=== PATIENT | female | born 1995 | race Caucasian/White ===

== ENCOUNTER → 2019-10-11 14:34 | Outpatient (CLI) | payer OTHER, SELFPAY ==
--- NOTE | ~2019-10-11 | US_ITS ---
EXAMINATION: US OB transvaginal EXAM DATE: 10/11/2019 15:01 INDICATION: Possible molar . Beta hCG positive, LMP on 07/24/2019 with bleeding since.. TECHNIQUE: Pelvic obstetrical transabdominal sonogram was performed by a technologist. There are mu ltiple grayscale and Doppler images available for interpretation. Correlation is made to prior ultras ound 06/29/2019. FINDINGS: The uterus is enlarged at 15.1 x 9.0 x 11.6 with heterogeneous predominantly solid mass wit hin the endometrium measuring 10.4 x 7.8 x 9.1 cm. Mass is relatively avascular. No viable intrauteri ne or extrauterine identified. Appearance is consistent with molar . Recommend his tologic correlation. Left ovary is morphologically normal. IMPRESSION: Endometrial mass; histologic correlation recommended. Reviewed, dictated and finalized at location A.
== END ==
PROVIDERS: Visit Provider Obstetrics & Gynecology Gynecology
DX: O02.0 Blighted ovum and nonhydatidiform mole (principal)
CPT/HCPCS: 76817

== ENCOUNTER 2019-10-15 14:41 | Outpatient (CLI) | payer OTHER, SELFPAY ==
--- NOTE | ~2019-10-15 | XR_ITS ---
EXAMINATION: XR chest 2V 10/15/2019 15:13 INDICATION: Molar . Preoperative evaluation. PROCEDURE: 2 view chest COMPARISON: No prior studies for comparison. FINDINGS: The lungs are clear. The cardiomediastinal silhouette is within normal limits. There are no pleural effusions. There is no pneumothorax suspected. IMPRESSION: 1: NO ACUTE CARDIOPULMONARY DISEASE. Reviewed, dictated and finalized at location A.
[2019-10-15 15:08] LABS: Hematocrit 40.1 % (37.0-47.0); Hemoglobin 13.8 g/dL (12.0-15.0); Mean Corpuscular HGB Conc 34.4 g/dl (32-36); Mean Corpuscular Hemoglobin 31.9 pg (26-34); Mean Corpuscular Volume 92.6 fl (80-100); Mean Platelet Volume 9.1 fl (7.4-10.4); Platelet Count Result 260 k/mm3 (150-375); Red Blood Count 4.33 M/mm3 (4.2-5.4); Red Cell Distribution Width 11.4 % (11.5-14.5)
[2019-10-15 15:20] LABS: Alanine Aminotransferase 16 U/L (4-35); Albumin Level 4.3 g/dL (3.5-5.1); Alkaline Phosphatase 77 U/L (38-126); Aspartate Amino Transferase 28 U/L (14-36); Bilirubin,Total 0.9 mg/dL (0.2-1.3); Blood Urea Nitrogen 9 mg/dL (7-17); Calcium 9.6 mg/dL (8.4-10.2); Carbon Dioxide 23 mmol/L (22-30); Chloride 102 mmol/L (98-107); Estimated Glomerular Filt Rate > 60; Glucose 89 mg/dL (65-105); Potassium 3.7 mmol/L (3.4-5.0); Sodium 135 mmol/L (137-145)
== END 2019-10-15 14:42 | disposition home or self-care (01) ==
LOC: ANHLAB 14:45
PROVIDERS: Visit Provider Obstetrics & Gynecology Gynecology
DX: Z01.818 Encounter for other preprocedural examination (principal); O02.0 Blighted ovum and nonhydatidiform mole
CPT/HCPCS: 36415; 71046; 80053; 85027; 86850; 86900; 86901

== ENCOUNTER 2019-10-16 01:37 | Day surgery (SDC) | payer OTHER, SELFPAY ==
[2019-10-15 15:44] VITALS: BMI 26.2
[2019-10-16 10:10] VITALS: BP 123/55; PULSE 81; RESP 16; TEMP 36.1; O2SAT 100
[2019-10-16] MEDS: LACTATED RINGERS 1,000 ML 30 ML IV CONT (10:30)
--- NOTE | 2019-10-16 10:36 | WPDANESEPPF ---
Anes - Initial Pre Proc Eval Procedure: Operation Date: 10/16/19 12:00 Proposed Procedures p Suction Dilatation and Curettage - Trice Slater MD Date/Time: 10/16/19 10:36 Surgeon: Trice Slater MD Pre Op Diagnosis: molar Patient Data Age: 24 Gender: F Height: 5 ft 3 in Weight: 67.13 kg Last Vital Signs Temp 36.1 C L 10/16/19 10:10 Pulse 81 10/16/19 10:10 Resp 16 10/16/19 10:10 BP 123/55 L 10/16/19 10:10 Pulse Ox 100 10/16/19 10:10 Allergies Allergy/AdvReac Type Severity Reaction Status Date / Time No Known Allergies Allergy Unknown Verified 10/15/19 15:43 Home Medications Medication Instructions Recorded Confirmed Type No Home Medications 10/15/19 10/15/19 History Patient hx anesthesia problems: none Family hx anesthesia problems: none PMFSH Past Medical History Medical History Healthy adult Surgical History Surgical History S/P D&C (status post dilation and curettage) Social History Social History Gender identity (if verbalized by the patient): Female Anes - Eval Final PreProcedure Day of Procedure 10/16/19 10:36 Patient weight: overweight Heart: regular rate and rhythm Lungs: clear to auscultation Airway: Mallampati scale class 1 Neurological: alert and oriented Last oral intake: >/= 8 hours ASA classification: II Emergent: no Anesthetic plan: proceed Anesthesia type and monitoring: general GIVS and standard monitoring Informed Consent: The patient's anesthetic plan and its attendant risks and benefits were discussed with the patient/family/POA. Questions were solicited and answers provided to the satisfaction of the patient/family/POA.
--- NOTE | 2019-10-16 11:33 | P.HP_ITS ---
History of Present Illness History of Present Illness Consent: Risks, benefits, and alternatives have been discussed and questions answered. Patient agrees to proceed with procedure. Chief complaint: molar Narrative: Clau Marx is a 24 year old female A2 here for D&C for molar . Patient with D&C 07/26/19 with pathology showing 69, XXX and no evidence of molar tissue. Patient did not follow up for 1 week post op but did return 08/30/19 due to light bleeding. BHCG was ordered at that visit but patient did not have it done. Patient then called on 10/08/19 stating she was still having light bleeding and continued to have +urine test. HCG's ordered and patient completed with HCG' at 5055 and 5246 48 hours apart. U/s done and showed a 15 cm solid molar . CXR and LFT's normal. Reviewed need for repeat D&C. Reviewed risks of procedure with patient and sig. other including bleeding requiring transfusion and potentially hysterectomy. [facility] Past Medical History Medical History Healthy adult Surgical History Surgical History S/P D&C (status post dilation and curettage) Social History Social History Gender identity (if verbalized by the patient): Female Meds Home Medications and Allergies Home Medications Medication Instructions Recorded Confirmed Type No Home Medications 10/15/19 10/15/19 History Allergies Allergy/AdvReac Type Severity Reaction Status Date / Time No Known Allergies Allergy Unknown Verified 10/15/19 15:43 Vital Signs Vital Signs - 24 hr 10/16/19 10:10 Temperature 97.0 F L Pulse Rate 81 Respiratory Rate 16 Blood Pressure 123/55 L Pulse Oximetry 100 Exam Const: General: no acute distress Cardio: Rate: regular rate Rhythm: regular rhythm GI: Other: fundus u-4 Assessment and Plan Assessment and plan (1) Molar : Code(s): O02.0 - Blighted ovum and nonhydatidiform mole Status: Acute Assessment and Plan: Plan suction D&C. Plan u/s guidance. Will start pitocin drip and give IM methergine prior to dilation. Cytotec and large devine available in room. Plan Methotrexate post op. Will follow HCG q week until negative then monthly for 1 year. Instructed patient and sig. other to use effective control for 1 year. Patient voiced understanding and agrees to proceed.
[2019-10-16] MEDS: METHYLERGONOVINE MALEATE 0.2 MG/ML VIAL IM (12:03)
[2019-10-16] MEDS: OXYTOCIN 30 UNITS/NS 500 ML 30 UNITS/500 ML BAG IV CONT (12:22)
--- NOTE | 2019-10-16 12:32 | PM.OP ---
Procedure Note - Brief Procedure Note - Brief Date of procedure: 10/16/19 Pre-op diagnosis: molar Post-op diagnosis: same Procedure performed: suction D&C ultrasound guided Anesthesia: MAC and local Surgeon: Trice Slater MD Estimated blood loss (mL): 300 (total POC and blood) Drains: No Packing: No Pathology: yes (POC) Complications: No immediate complications Condition: stable Disposition: PACU Findings: Uterus initially 14 cm and ending 9.5 cm large amount of tissue obtained u/s before, during, and post-procedure post showed thickened endometrial lining but no visible tissue
[2019-10-16 12:38] VITALS: BP 114/79; PULSE 105; RESP 16; TEMP 36.2; O2SAT 98
[2019-10-16 13:00] VITALS: BP 113/59; PULSE 76
[2019-10-16 13:30] VITALS: BP 115/67; PULSE 68
[2019-10-16] MEDS: METHOTREXATE SODIUM/PF 50 MG/2 ML VIAL IM (13:30)
--- NOTE | 2019-10-16 14:04 | OP_ITS ---
DATE OF PROCEDURE: 10/16/2019 PREOPERATIVE DIAGNOSIS: Molar . POSTOPERATIVE DIAGNOSIS: Molar . PROCEDURE: Suction D and C under ultrasound guidance. ANESTHESIA: MAC and local. FINDINGS: The uterus initially sounds to 14 cm. At the end of the case, it sounds to 9.5 cm. There was a large amount of tissue obtained. Ultrasound before, during, and post procedure was performed. The postprocedure showed thickened endometrium lining with no additional visible tissue noted. ESTIMATED BLOOD LOSS: 300 cc which included a large amount of products of conception. Minimal bleeding. PATHOLOGY: Endometrial contents, products of conception. DESCRIPTION OF PROCEDURE: The patient was taken to the operating room, placed under anesthesia, prepped and draped in the usual sterile fashion in the dorsal lithotomy position. The patient had a Pitocin drip started prior to beginning the procedure and was given Methergine 0.2 mg IM prior to beginning the procedure. Ultrasound was utilized and the uterus easily visible with large amount of tissue noted within the endometrium. The bivalve speculum was placed in the vagina. The cervix was grasped anteriorly with a tenaculum and injected with 1% lidocaine. The uterus was not sounded initially. The cervix was serially dilated with Hegars to a 12. The uterus was then sounded to 14 cm. The 12 mm suction curette was used to evacuate the uterus until no further products were noted in the tubing. As the suction curette was pulled out, the tissue was visible at the os. This was pulled out using the polyp forceps until no further products were noted at the cervix. The suction curette was again placed. Additional products were noted. This continued until no further products were noted in the tubing. The large sharp curette was used to gently curette the endometrium. Products continued to be obtained. The 10 mm suction curette was then placed and an additional large amount of tissue was obtained. The suction was removed. Additional tissue was noted at the cervix, this was removed with polyp forceps. The sharp curette was then used and minimal to no material was obtained. Ultrasound throughout revealed decreasing amount of tissue. At this point, ultrasound was again performed and no additional tissue is noted within the cavity and under sharp curette, the cavity appears smooth with a good uterine cry noted in all areas. The uterus was again sounded and noted to be 9.5 cm. All instruments were removed. The patient was awakened from anesthesia, taken to recovery in stable condition. D I MT: Milo
[2019-10-16 14:15] VITALS: BP 108/64; PULSE 72
== END 2019-10-16 14:35 | disposition home or self-care (01) ==
PROVIDERS: Visit Provider Obstetrics & Gynecology Gynecology
PROC: (CPT 59820; principal; 2019-10-16 12:00)
DX: O02.0 Blighted ovum and nonhydatidiform mole (principal)
CPT/HCPCS: 59820; 88305; A9270; J1885; J2210; J2250; J2590; J2704; J3010; J7120; J9260

== ENCOUNTER 2020-05-26 16:46 | Emergency (ER) | payer OTHER, SELFPAY ==
[2020-05-26 16:58] VITALS: BP 117/61; PULSE 115; RESP 19; TEMP 37.9; O2SAT 100
[2020-05-26 17:38] LABS: Add Urine Microscopic? YES; Appearance Urine Clear (Clear); Bacteria Urine Trace /hpf; Bilirubin Urine Negative (Negative); Blood Urine 1+ (Negative); Color Urine Amber (Yellow); Glucose Urine UA Negative (Negative); Ketones Urine Negative (Negative); Leukocyte Esterase Ur 2+ LEU/UL (Negative); Mucus Urine Rare /lpf; Nitrate Urine Positive (Negative); Protein Urine 2+ mg/dL (Negative); RBC Urine 21-50 /hpf (0-2); Specific Grav Ur 1.012 (1.001-1.035); Squamous Epithelial Cell Urine Occasional /hpf (Few); WBC Urine >75 /hpf
--- NOTE | 2020-05-26 18:36 | ED.GENADULT ---
HPI - General Adult General Chief complaint: Urogenital-Female Stated complaint: UTI symptoms Time Seen by Provider: 05/26/20 17:48 Source: patient and RN notes reviewed Mode of arrival: ambulatory Limitations: no limitations History of Present Illness HPI narrative: Patient is a 25-year-old female who presents with urinary symptoms that have been present now for the last 5 days started an old prescription for her symptoms took 3 doses of Bactrim DS. Patient notes she has had some burning and discomfort and also having some mid back pain with the denies any vomiting diarrhea URI symptoms. Patient notes today she spiked a fever so came in for concern patient has not been seen for this complaint Related Data Allergies Allergy/AdvReac Type Severity Reaction Status Date / Time No Known Allergies Allergy Unknown Verified 05/26/20 17:03 Review of Systems Review of Systems: All systems reviewed & are unremarkable except as noted in HPI and below PMFSH Past Medical History Medical History (Updated 05/26/20 @ 19:54 by Rocky Cummings PA-C) Healthy adult Surgical History Surgical History S/P D&C (status post dilation and curettage) Social History Social History Gender identity (if verbalized by the patient): Female Exam Narrative: Exam Narrative: GENERAL: Ill-appearing, well-nourished, and in no acute distress. HEAD: Normocephalic, atraumatic. EYES: PERRLA and EOMI. ENT: Nares clear, no rhinorrhea or epistaxis. Mucous membranes moist. CHEST: Clear to auscultation. No respiratory distress. No wheezes rales or rhonchi HEART: Regular rate and rhythm. No murmur heard. Normal peripheral pulses. ABDOMEN: Soft, nontender, nondistended EXTREMITIES: Normal range of motion. No edema. SKIN: Warm, dry, no rash. NEURO: No focal deficits. Alert and oriented x3. PSYCH: Normal mood and affect. Course Course Emergency Course: Patient in the room at this time feeling better with interventions will be discharged home with gynecological follow-up given reasons to return given fluids antidiuretics and reasons to return agreeing to do so if symptoms worsen Vital Signs Vital signs: Vital Signs Temperature 100.3 F H 05/26/20 16:58 Pulse Rate 115 H 05/26/20 16:58 Respiratory Rate 19 05/26/20 16:58 Blood Pressure 117/61 05/26/20 16:58 Pulse Oximetry 100 05/26/20 16:58 Temperature 100.3 F H 05/26/20 16:58 Pulse Rate 104 H 05/26/20 18:55 Respiratory Rate 17 05/26/20 18:55 Blood Pressure 115/61 05/26/20 18:55 Pulse Oximetry 97 05/26/20 18:55 Medical Decision Making MDM Narrative Medical decision making narrative: Patient with urinary tract infection is the likely etiology of her symptoms will be placed on antibiotics and other medications treated symptomatically felt appropriate for outpatient reevaluation nontoxic-appearing without emesis Vital Signs Vital Signs: Vital Signs Temperature 100.3 F H 05/26/20 16:58 Pulse Rate 115 H 05/26/20 16:58 Respiratory Rate 19 05/26/20 16:58 Blood Pressure 117/61 05/26/20 16:58 Pulse Oximetry 100 05/26/20 16:58 Temperature 100.3 F H 05/26/20 16:58 Pulse Rate 104 H 05/26/20 18:55 Respiratory Rate 17 05/26/20 18:55 Blood Pressure 115/61 05/26/20 18:55 Pulse Oximetry 97 05/26/20 18:55 Lab Data Result diagrams: 05/26/20 18:49 05/26/20 18:49 Labs: Lab Results 05/26/20 05/26/20 05/26/20 Range/Units 17:12 18:49 18:49 WBC 13.1 H (4.5-10.0) K/mm3 RBC 4.31 (4.2-5.4) M/mm3 Hgb 14.2 (12.0-15.0) g/dL Hct 39.9 (37.0-47.0) % MCV 92.6 (80-100) fl MCH 32.9 (26-34) pg MCHC 35.6 (32-36) g/dl RDW 11.9 (11.5-14.5) % Plt Count 242 (150-375) k/mm3 MPV 9.1 (7.4-10.4) fl Immature Gran % (Auto) 0.4 (0-0.5) % Neut % (Auto) 83.0 H (45.5-73.1
[2020-05-26] MEDS: FAMOTIDINE 20 MG/2 ML VIAL IV PUSH (18:48)
[2020-05-26] MEDS: SODIUM CHLORIDE 0.9% IV 1,000 ML 999 ML IV CONT (18:48)
[2020-05-26] MEDS: ONDANSETRON INJ 4 MG/2 ML VIAL IV PUSH (18:48)
[2020-05-26 18:55] VITALS: BP 115/61; PULSE 104; RESP 17; O2SAT 97
[2020-05-26 18:59] LABS: Basophils Percent Auto 0.2 % (0.2-1.2); Hematocrit 39.9 % (37.0-47.0); Hemoglobin 14.2 g/dL (12.0-15.0); Immature Granulocyte Absolute 0.05 K/mm3 (0.00-0.031); Immature Granulocyte Percent A 0.4 % (0-0.5); Lymphocytes Absolute Auto 0.93 K/mm3 (0.9-3.2); Lymphocytes Percent Auto 7.1 % (18.3-44.2); Mean Corpuscular HGB Conc 35.6 g/dl (32-36); Mean Corpuscular Hemoglobin 32.9 pg (26-34); Mean Corpuscular Volume 92.6 fl (80-100); Mean Platelet Volume 9.1 fl (7.4-10.4); Monocytes Absolute Auto 1.2 K/mm3 (0.1-0.6); Monocytes Percent Auto 9.3 % (2.6-8.5); Neutrophils Absolute Auto 10.8 K/mm3 (1.3-6.7); Platelet Count Result 242 k/mm3 (150-375); Red Blood Count 4.31 M/mm3 (4.2-5.4); Red Cell Distribution Width 11.9 % (11.5-14.5); White Blood Count 13.1 K/mm3 (4.5-10.0)
[2020-05-26 19:12] LABS: Anion Gap 8 mmol/L (8-16); Blood Urea Nitrogen 7 mg/dL (7-17); Calcium 9.3 mg/dL (8.4-10.2); Carbon Dioxide 27 mmol/L (22-30); Chloride 100 mmol/L (98-107); Estimated CRCL calculation 85 ml/min; Estimated Glomerular Filt Rate > 60; Glucose 112 mg/dL (65-105); Potassium 3.7 mmol/L (3.4-5.0); Sodium 135 mmol/L (137-145)
== END 2020-05-26 20:05 | disposition home or self-care (01) ==
PROVIDERS: Emergency Medicine Emergency Medical Services; Emergency Provider Emergency Medicine
DX: N39.0 Urinary tract infection, site not specified (principal)
CPT/HCPCS: 36415; 80048; 81001; 81025; 85025; 87077; 87086; 87088; 87186; 96365; 96375; 99284; J0131; J0696; J2405; J7030

== ENCOUNTER 2020-05-29 07:51 | Emergency (ER) | payer OTHER, SELFPAY ==
--- NOTE | ~2020-05-29 | CT_ITS ---
EXAMINATION: CT abdomen pelvis wo con DATE: 05/29/2020 08:58 INDICATION: Left flank pain for 5 days. Urinary tract infection. TECHNIQUE: Computed tomography (CT) of the abdomen and pelvis was performed without intravenous contr ast. Automated exposure control and iterative reconstruction technique were employed. Exam dose: 297 .09 mGy-cm total exam DLP. COMPARISON: None. FINDINGS: The lung bases are clear. Normal heart size. No pericardial or pleural effusion. The liver, gallbladder, bile ducts, spleen, pancreas and pancreatic duct, and adrenal glands are unre markable. No renal mass lesion is evident on this limited noncontrast examination. There is mild left perinephr ic fat stranding, which may be secondary to left pyelonephritis. No urinary tract calculus or obstruc tion is suggested. There is moderate diffuse thickening of the urinary bladder. Cystitis should be considered. The uterus and adnexal areas are unremarkable. There is mild free fluid accumulation in the pelvic cu l-de-sac. Normal appendix. No bowel obstruction, bowel wall thickening, pneumatosis or intraperitoneal free air is detected. Included skeletal structures are normal in appearance. IMPRESSION: Moderate thickening and urinary bladder wall and mild left perinephric stranding; consid er cystitis, left pyelonephritis No urinary tract calculus or obstruction is evident. Normal appendix Reviewed, dictated and finalized at Location [facility]. Reviewed, dictated and finalized at location A. MACHINE OPERATOR IMPRESSION: Moderate thickening and urinary bladder wall and mild left perinep hric stranding; consider cystitis, left pyelonephritis No urinary tract calculus or obstruction is evident. Normal appendix
[2020-05-29 08:00] VITALS: BP 124/81; PULSE 110; RESP 16; TEMP 36.3; O2SAT 99
[2020-05-29] MEDS: KETOROLAC (*BKC) 60 MG/2 ML VIAL IM (08:10)
[2020-05-29 08:32] LABS: Add Urine Microscopic? YES; Appearance Urine Clear (Clear); Bilirubin Urine Negative (Negative); Blood Urine 2+ (Negative); Color Urine Yellow (Yellow); Glucose Urine UA Negative (Negative); Ketones Urine Negative (Negative); Leukocyte Esterase Ur Trace LEU/UL (Negative); Mucus Urine Rare /lpf; Nitrate Urine Negative (Negative); Protein Urine Negative (Negative); Specific Grav Ur 1.015 (1.001-1.035); Squamous Epithelial Cell Urine Few /hpf (Few); Urobilinogen Urine Negative mg/dL (<2.0)
--- NOTE | 2020-05-29 08:34 | ED.FEMALEGU ---
HPI - Female Genitourinary General Chief complaint: Urogenital-Female Stated complaint: hematuria Time Seen by Provider: 05/29/20 07:59 History of Present Illness HPI Narrative: Patient is a 25-year-old female who presents ER with left flank pain. Reports she was seen here couple days ago for UTI. She was prescribed Keflex and has been taking it. No longer has dysuria. She is also prescribed Pyridium. Reports she had an episode of red-colored urine. Denies fevers or chills or sweats. No abdominal pain. Pain in the back is worse with movement and palpation. Related Data Allergies Allergy/AdvReac Type Severity Reaction Status Date / Time No Known Allergies Allergy Unknown Verified 05/29/20 08:20 Review of Systems Review of Systems: All systems reviewed & are unremarkable except as noted in HPI and below Constitutional: Constitutional: Denies chills and Denies fatigue Gastrointestinal: Gastrointestinal: Denies abdominal pain, Denies nausea and Denies vomiting Genitourinary: Genitourinary: Reports hematuria, Denies nocturia, Denies dysuria and Reports flank pain PMFSH Past Medical History Medical History (Updated 05/29/20 @ 10:43 by Milo Stuart MD) Healthy adult Surgical History Surgical History S/P D&C (status post dilation and curettage) Social History Social History Gender identity (if verbalized by the patient): Female Exam Narrative: Exam Narrative: GENERAL: Well-appearing, well-nourished, and in no acute distress. HEAD: Normocephalic, atraumatic. CHEST: Clear to auscultation. No respiratory distress. HEART: Tachycardic and regular. Normal peripheral pulses. Back: Mild left CVA tenderness and left paraspinal muscular tenderness near L2. SKIN: Warm, dry, no rash. NEURO: No Alert and oriented x3. PSYCH: Normal mood and affect. Course Course Emergency Course: Patient informed of results. Discontinue Keflex at home after reviewing antibiogram. Patient given ceftriaxone here and will be discharged with Cipro/Mar[place]/Zofran. Patient verbalized understanding. Vital Signs Vital signs: Vital Signs Temperature 97.3 F L 05/29/20 08:00 Pulse Rate 110 H 05/29/20 08:00 Respiratory Rate 16 05/29/20 08:00 Blood Pressure 124/81 05/29/20 08:00 Pulse Oximetry 99 05/29/20 08:00 Temperature 97.3 F L 05/29/20 08:00 Pulse Rate 110 H 05/29/20 08:00 Respiratory Rate 16 05/29/20 08:00 Blood Pressure 124/81 05/29/20 08:00 Pulse Oximetry 99 05/29/20 08:00 MDM - Female Genitourinary Lab Data Labs: Lab Results 05/29/20 Range/Units 08:13 Urine Color Yellow (Yellow) Urine Appearance Clear (Clear) Urine pH 6.0 (5.0-9.0) Ur Specific [place] 1.015 (1.001-1.035) Urine Protein Negative (Negative) mg/dL Urine Glucose (UA) Negative (Negative) mg/dL Urine Ketones Negative (Negative) mg/dL Ur Blood (Man) 2+ H (Negative) Urine Nitrate Negative (Negative) Urine Bilirubin Negative (Negative) Urine Urobilinogen Negative (<2.0) mg/dL Leukocyte Esterase Rfl Trace H (Negative) ЕЛЕНА/UL Urine RBC 11-20 H (0-2) /hpf Urine WBC 10-15 H /hpf Ur Squamous Epith Cells Few (Few) /hpf Urine Mucus Rare /lpf UCG Bedside Result Negative Reference Range: Negative Urine Characteristics Clear Imaging Data Radiologist's impression: ITS Impressions Abdomen/Pelvis CT 05/29/20 09:09 IMPRESSION: Moderate thickening and urinary bladder wall and mild left perinephric stranding; consider cystitis, left pyelonephritis No urinary tract calculus or obstruction is evident. Normal appendix Discharge Plan Discharge Clinical Impression: Pyelonephritis Patient Disposition: Home, Self-Care C
[2020-05-29 11:01] VITALS: BP 118/75; PULSE 78; RESP 16; O2SAT 100
== END 2020-05-29 11:01 | disposition home or self-care (01) ==
PROVIDERS: Emergency Provider Emergency Medicine
DX: N12 Tubulo-interstitial nephritis, not specified as acute or chronic (principal)
CPT/HCPCS: 74176; 81001; 81025; 87086; 96365; 96372; 99284; J0696; J1885